=== PATIENT | female | born 1995 | race Caucasian/White ===

== ENCOUNTER 2016-11-29 21:11 | Emergency (ER) | payer BC, OTHER ==
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
[2016-11-29 22:49] VITALS: BP 139/74
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
== END 2016-11-29 22:46 | disposition home or self-care (01) ==
LOC: MW.ED 21:11
DX: S30.0XXA Contusion of lower back and pelvis, initial encounter (principal); S20.219A Contusion of unspecified front wall of thorax, initial encounter; S10.93XA Contusion of unspecified part of neck, initial encounter; T74.21XA Adult sexual abuse, confirmed, initial encounter; Z88.1 Allergy status to other antibiotic agents; Z79.899 Other long term (current) drug therapy
CPT/HCPCS: 71020; 71020-26; 72220; 72220-26; 99283